=== PATIENT | male | born 1995 | race Caucasian/White ===

== ENCOUNTER 2017-12-02 23:51 | Emergency (ER) | payer OTHER ==
[~2017-12-02] VITALS: Ht 182.9 cm; Wt 88.6 kg
[2017-12-02 23:54] VITALS: TEMP 98.2
[2017-12-03 00:28] LABS: BASO % 0.6 % (0.0-2.0); EOS # 0.1 (0.0-0.7); EOS % 1.1 % (0-4.0); GRAN # 2.8 (1.4-6.5); GRAN % 44.9 % (42.2-75.2); HEMATOCRIT 42.8 % (42.0-52.0); HEMOGLOBIN 15.8 g/dl (13.5-18.0); LYMPH # 2.8 (1.2-3.4); LYMPH % 44.8 % (20.0-51.0); MEAN CELL VOLUME 85 fl (80.0-100.0); MEAN CORPUSCULAR HEMOGLOBIN 31 pg (27.0-31.0); MEAN CORPUSCULAR HGB CONC 37 g/dl (33.0-37.0); MEAN PLATELET VOLUME 10.7 fl (7.4-10.4); MONO # 0.5 (0.1-0.6); MONO % 8.1 % (1.7-9.3); PLATELET COUNT 142 K/mm3 (130-400); RED BLOOD COUNT 5.05 M/mm3 (4.20-5.60); REDCELL DISTRIBUTION WIDTH-CV 11.9 % (11.5-14.5)
[2017-12-03 00:36] LABS: ALBUMIN 4.5 gm/dL (3.5-5.0); BILIRUBIN,TOTAL 1.2 mg/dL (0.0-1.0); CALCIUM 9.1 mg/dL (8.4-10.2); CREATININE, serum 1.05 mg/dL (0.66-1.25); POTASSIUM 3.8 mmol/L (3.4-5.0); TOTAL PROTEIN 8.2 gm/dL (6.4-8.2)
[2017-12-03 00:52] LABS: PROLACTIN 35.4 ng/mL (3.7-17.9)
[2017-12-03 01:58] LABS: COLLECTION METHOD CLEAN CATCH
[2017-12-03 02:12] LABS: PH 6 (5-8); SQUAMOUS EPITHELIAL None Seen /hpf; URINE APPEARANCE Clear; URINE BACTERIA None Seen /hpf; URINE BILIRUBIN Negative (NEGATIVE); URINE BLOOD Negative (NEGATIVE); URINE COLOR Straw; URINE GLUCOSE Negative (NEGATIVE); URINE KETONE Negative (NEGATIVE); URINE LEUKOCYTE ESTERASE Negative (NEGATIVE); URINE NITRATE Negative (NEGATIVE); URINE PROTEIN(semi-quant) Negative (NEGATIVE); URINE RBC 0-2 /hpf; URINE UROBILINOGEN Negative (NEGATIVE)
[2017-12-03 02:18] LABS: TRICYCLIC ANTIDEPRESS URINE NEGATIVE
[2017-12-03 02:30] VITALS: BP 123/75; PULSE 80
== END 2017-12-03 02:30 | disposition home or self-care (01) ==
LOC: COL.ER 23:51
PROVIDERS: Emergency Medicine
DX: F10.129 Alcohol abuse with intoxication, unspecified (principal); R55 Syncope and collapse; Y90.6 Blood alcohol level of 120-199 mg/100 ml
CPT/HCPCS: J7030

== ENCOUNTER 2019-09-09 04:51 | Observation (INO) | payer OTHER, BC ==
[~2019-09-09] VITALS: Ht 182.9 cm; Wt 72.6 kg
[2019-09-09] VITALS (8 sets, daily range): BP systolic 120–133; BP diastolic 58–62; PULSE 84–106; TEMP 98–99
[2019-09-09 06:08] LABS: BASO % 0.1 % (0.0-2.0); GRAN # 14.2 (1.4-6.5); GRAN % 89.2 % (42.2-75.2); HEMATOCRIT 39.1 % (42.0-52.0); HEMOGLOBIN 14.8 g/dl (13.5-18.0); LYMPH # 0.9 (1.2-3.4); LYMPH % 5.4 % (20.0-51.0); MEAN CELL VOLUME 83 fl (80.0-100.0); MEAN CORPUSCULAR HEMOGLOBIN 32 pg (27.0-31.0); MEAN CORPUSCULAR HGB CONC 38 g/dl (33.0-37.0); MEAN PLATELET VOLUME 10.2 fl (7.4-10.4); MONO # 0.8 (0.1-0.6); PLATELET COUNT 209 K/mm3 (130-400); REDCELL DISTRIBUTION WIDTH-CV 11.4 % (11.5-14.5)
[2019-09-09 06:21] LABS: ALANINE AMINOTRANSFERASE 27 U/L (21-72); ALBUMIN 4.6 gm/dL (3.5-5.0); ALKALINE PHOSPHATASE 57 U/L (50-136); ANION GAP 16 mmol/L (7-16); AST,SGOT 31 U/L (15-37); BILIRUBIN,TOTAL 1.4 mg/dL (0.0-1.0); BLOOD UREA NITROGEN 16 mg/dL (9-20); CALCIUM 9.1 mg/dL (8.4-10.2); CARBON DIOXIDE 19 mmol/L (22-30); CHLORIDE 108 mmol/L (98-107); CREATININE, serum 0.93 (0.66-1.25); GLUCOSE 134 mg/dL (74-106); LIPASE 23 U/L (23-300); SODIUM 143 mmol/L (137-145); TOTAL PROTEIN 7.6 gm/dL (6.4-8.2)
[2019-09-09 06:29] LABS: ACETAMINOPHEN < 10 ug/mL (10-30); POTASSIUM 2.9 mmol/L (3.4-5.0); SALICYLATE < 1.0 mg/dL
[2019-09-09 06:45] LABS: MAGNESIUM 1.4 mg/dL (1.6-2.3)
[2019-09-09 08:54] LABS: COLLECTION METHOD CLEAN CATCH
--- NOTE | 2019-09-09 09:00 | NUR ---
PATIENT ADMITTED TO ROOM 351 FROM ER FOR NVD AND HYPOKALEMIA AND HYPOMAGNESIUM. UPON ARRIVAL PATIENT A/O X 4. ATITUDE QUIET AND PLEASANT. C/O OF NAUSEA. LARGE EPISODE OF EMISIS. SEE EMAR FOR MEDICATION ADMINISTERED. DENIES C/O SHORTNESS OF BREATHE OR CHEST PAIN. REQUESTING TO GO TO SLEEP. WILL COMPLETE ADMISSION ASSESSMENTS LATER. [place] PRECAUTIONS INITIATED FOR INFLUENZA A POSITIVE. NS WITH 40mEq OF kcl INFUSING ORDERED THROUGH RIGHT AC IV SITE. TELEMETRY MONITORING IN PLACE.
[2019-09-09 09:26] LABS: MUCOUS Present /lpf; PH 6 (5-8); SQUAMOUS EPITHELIAL None Seen /hpf; URINE APPEARANCE Hazy; URINE BACTERIA None Seen /hpf; URINE BILIRUBIN Negative (NEGATIVE); URINE BLOOD Negative (NEGATIVE); URINE COLOR Yellow; URINE GLUCOSE 3+ (NEGATIVE); URINE KETONE 2+ (NEGATIVE); URINE LEUKOCYTE ESTERASE Negative (NEGATIVE); URINE NITRATE Negative (NEGATIVE); URINE PROTEIN(semi-quant) 2+ (NEGATIVE); URINE UROBILINOGEN Negative (NEGATIVE)
--- NOTE | 2019-09-09 10:30 | NUR ---
MOTHER PRESENT ON FLOOR AT THIS TIME. CRYING AND ASKS "SO YOU GUYS ARE JUST TREATING HIM FOR THE FLU"? PLAN OF CARE AND REASON FOR HOSPITALIZATION (cONTINUED VOMITING WITH ELECTROLYTE IMBALANCES) REVIEWED WITH MOTHER. SHE STATES "YOU GUYS DO REALIZE THAT HE TOOK A WHOLE BOTTLE OF CAFFIENE PILLS BECAUSE HE WAS TRYING TO KILL HIMSELF". DR BROWN NOTIFIED OF MOTHERS STATEMENT. TALKED WITH PATIENTS WHO CONFIRMS THAT HE TOOK A WHOLE UNOPEN BOTTLE OF CAFFIENE PILLS. STATES "WHEN I TOOK THEM I WANTED TO , BUT I DON'T WANT TO , AND KNOW REALIZE THAT IT WAS REALY STUPID". STRICT 1:1 SUICIDE OBSERVATION PROTOCOL INITIATED AT THIS TIME. SUICIDE PLAN OF CARE REVIEWED WITH PATIENT. PERSONAL VALUABLES SENT HOME WITH MOTHER PER PATIENT REQUEST.
[2019-09-09 12:29] LABS: TRICYCLIC ANTIDEPRESS URINE NEGATIVE
[2019-09-09 15:25] LABS: CREATININE, serum 1.07 (0.66-1.25); MAGNESIUM 2.4 mg/dL (1.6-2.3); POTASSIUM 4.9 mmol/L (3.4-5.0)
--- NOTE | 2019-09-09 23:15 | NUR ---
PT IN BED. TOOK SHOWER. PARENTS IN TO VISIT. NO MENTION OF SUICIDE OR ATTEMPTS TO END HIS LIFE. PT REFUSED LOVENOX AFTER INFORMING HIM WHAT IT'S FOR AND HOW IT'S ADMINISTERED.
[2019-09-10 03:02] VITALS: BP 116/63; PULSE 83; TEMP 98.4
--- NOTE | 2019-09-10 06:39 | NUR ---
PT IN BED. NO MENTION OF SUICIDE OR SUICIDAL THOUGHTS.
[2019-09-10 07:38] VITALS: BP 120/66; PULSE 88; TEMP 97.7
--- NOTE | 2019-09-10 09:15 | NUR ---
0740: PATIENT SITTING UP IN ROOM PLAYING ON PHONE. ATTITUDE CALM, COOPERATIVE, BUT WITHDRAWN. ASKING WHEN HE CAN LEAVE. STATES "I AM JUST READY TO GO HOME, IM BORED". DISCUSSED WITH PATIENT THAT HE IS UNABLE TO LEAVE AT THIS TIME HE IS IN SUICIDE PRECAUTIONS FOR ACTUAL SUICIDE ATTEMPT. PATIENT VERBALIZES UNDERSTANDING. REQUESTING TO HAVE IV FLUIDS STOPPED. PATIENT EATING, AND DRINK WITH NO C/O NAUSEA OR VOMITING. IV FLUIDS ON STAND BY UNTIL PROVIDER ROUNDS PER PATIENT REQUEST. 1:[address] ORDERED[address] PATIENT DENIES FURTHER NEEDS AT END OF VISIT.
[2019-09-10 09:32] LABS: BASO % 0.1 % (0.0-2.0); EOS % 0.1 % (0-4.0); GRAN # 9.1 (1.4-6.5); GRAN % 82.1 % (42.2-75.2); HEMATOCRIT 41.6 % (42.0-52.0); HEMOGLOBIN 14.9 g/dl (13.5-18.0); LYMPH # 1.5 (1.2-3.4); LYMPH % 13.4 % (20.0-51.0); MEAN CORPUSCULAR HEMOGLOBIN 32 pg (27.0-31.0); MEAN CORPUSCULAR HGB CONC 36 g/dl (33.0-37.0); MEAN PLATELET VOLUME 10.4 fl (7.4-10.4); MONO # 0.4 (0.1-0.6); MONO % 3.9 % (1.7-9.3); PLATELET COUNT 163 K/mm3 (130-400); RED BLOOD COUNT 4.65 M/mm3 (4.20-5.60); REDCELL DISTRIBUTION WIDTH-CV 12.9 % (11.5-14.5)
[2019-09-10 09:34] LABS: MEAN CELL VOLUME 90 fl (80.0-100.0)
[2019-09-10 09:42] LABS: CALCIUM 9.5 mg/dL (8.4-10.2); CREATININE, serum 1.16 (0.66-1.25); MAGNESIUM 2.1 mg/dL (1.6-2.3); PHOSPHOROUS 2.9 mg/dL (2.5-4.5); POTASSIUM 4.1 mmol/L (3.4-5.0)
[2019-09-10 10:05] VITALS: BP 131/71; PULSE 95; TEMP 97.9
--- NOTE | 2019-09-10 10:33 | NUR ---
CALL TO [facility] FOR MENTAL HEALTH SCREEN. FACE SHEET, LABS, AND H&P FAXED TO [phone]
--- NOTE | 2019-09-10 11:39 | NUR ---
[facility] CALLED BACK TO SET UP MENTAL HEALTH SCREENING. PATIENT READY FOR SCREENING. COMPLETED VIA ZOOM MEETING # [phone]. MOTHER PRESENT AT TIME OF SCREENING.
--- NOTE | 2019-09-10 12:11 | NUR ---
Plan: Patient would like to DC home, educated patient on screen. Assess: SW met with patient in room with father. Patient gave verbal auth to speak in front of guest. Patient reports that he resides alone in [place]. Patient reports that he does not have a PCP. Patient denies any active SI or HI plans, or attempt. Patient reports that his mother Minoo Mathis . Patient denies having a DPOA or any DME concerns. Action: SW offered resources and educated on community supports. Nothing follows.
--- NOTE | 2019-09-10 12:27 | NUR ---
MENTAL HEALTH SCREEN COMPLETED AND SIGNED BY PATIENT AND MOTHER. COPY FAXED BACK TO [facility] @ [phone].
[2019-09-10] MEDS ORDERED: TAMIFLU 75MG75 MG PO (13:09)
[2019-09-10] MEDS ORDERED: ZOFRAN 4MG T4 MG/TAB PO (13:10)
--- NOTE | 2019-09-10 13:51 | NUR ---
PATIENT DC TO HOME ACCOMPANIED BY MOTHER VIA PRIVATE VEHICLE @ 1350. PRINTED DC INSTRUCTIONS TO INCLUDE F/U, MEDICATION AND HOSPITTAL DX REVIWED WITH PATIENT. NO QUESTIONS OR CONCERNS AFTER REVIEW.
== END 2019-09-10 13:45 | disposition home or self-care (01) ==
LOC: COL.ER 04:51 → MEDICAL 07:05
PROVIDERS: Emergency Medicine; ADMIT Hospitalist
DX: T14.91XA Suicide attempt, initial encounter (principal); J11.1 Influenza due to unidentified influenza virus with other respiratory manifestations; D72.829 Elevated white blood cell count, unspecified; E87.6 Hypokalemia; R11.2 Nausea with vomiting, unspecified; E83.42 Hypomagnesemia
CPT/HCPCS: G0378; J0780; J1885; J2405; J2550; J3475; J3480; J7030; J7120